=== PATIENT | male | born 1945 | race Caucasian/White ===

== ENCOUNTER → 2016-09-27 | Outpatient (CLI) | payer OTHER ==
--- NOTE | 2016-09-28 08:56 | MRI ---
Study: MRI of the right wrist. MRI of the right hand. Indication: HAND PAIN; WRIST PAIN Technique: Multiplanar, multi sequence MRI of the right wrist and MRI of the right hand were obtained without intravenous contrast. Comparison: None. 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 Tiny joint effusion. Millimetric scattered ganglion noted about the joint space. Less pronounced mild to moderate STT joint osteoarthritis. No acute fracture or osseous contusion. Mild osteoarthritis scapholunate joint with mild subchondral cystic change of the radial margin of the lunate. Degenerative signal and attenuation scapholunate ligament without fluid-filled tear defect. Lunotriquetral ligament intact. Subchondral marrow change also noted of the lunate at its articulation with the hamate indicating mild to moderate osteoarthritis. Type 2 lunate with mild subchondral marrow change of the adjacent proximal pole of the hamate. Mild distal radioulnar joint osteoarthritis with a small joint effusion. Degenerative tearing and thinning of the central substance of the TFC noted. No appreciable tear of the extensor or flexor tendons. Flexor retinaculum, median nerve, ulnar nerve are unremarkable. Slight dorsal subluxation distal ulna in relation sigmoid notch. Scattered osteoarthritic changes noted throughout the MCP joints and IP joints with changes most pronounced at the 3rd MCP joint where there is moderate to severe osteoarthritis. Fairly extensive areas of grade 4 chondral loss noted throughout this joint space with cortical remodeling and small to moderate joint line osteophytes. There is patchy marrow edema within the base of the 3rd proximal phalanx as well as the head neck of the 3rd metacarpal. Associated joint effusion noted with ganglionic like distension along the proximal/ volar margin. Impression: Scattered osteoarthritic changes throughout the right wrist and hand with changes most pronounced at the 1st CMC joint where there are severe changes and at the 3rd MCP joint where there are moderate to severe changes as detailed above. Degenerative thinning central substance scapholunate ligament without full-thickness tear defect or widening of the interval. Thinning and degenerative tearing TFC. Additional findings as above. Electronically signed by: Rodolfo Dean MD 09/28/2016 08:55
== END | disposition home or self-care (01) ==
LOC: MRI 09:36
PROVIDERS: ATTEND Family Medicine
DX: M19.031 Primary osteoarthritis, right wrist (principal)

== ENCOUNTER → 2016-10-19 | Outpatient (CLI) | payer OTHER ==
--- NOTE | 2016-10-19 11:40 | MRI ---
Study: MRI of the Right Elbow. Indication: PAIN IN ELBOW Technique: Multiplanar, multi sequence MRI of the right elbow was obtained without intravenous contrast. Comparison: Nine. Findings: External skin marker placed along the posterior/radial margin of the elbow. No discrete mass lesion at this site. There is adjacent common extensor tendinosis with an irregular low to intermediate grade interstitial fissuring throughout. No full-thickness transection. Prior partial thickness tear humeral attachment radial collateral ligament suspected as well. Prior sprain ulnar collateral ligament. Common flexor tendon origin intact. Biceps, brachialis, and triceps tendon insertions are intact. No acute fracture or osseous contusion. Ulnar nerve intact. Irregular grade 4 chondral loss and subchondral cystic change dorsal margin coronoid process with an adjacent 14 mm ossified loose body along its dorsal margin. There are scattered areas of grade 2/3 chondral thinning of the remainder of the elbow compartments with small marginal osteophytes. Tiny elbow effusion. Impression: Common extensor tendinosis with low to intermediate grade interstitial fissuring. Prior partial thickness tear humeral attachment radial collateral ligament. 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 Prior sprain ulnar collateral ligament. Electronically signed by: Rodolfo Dean MD 10/19/2016 11:39 AM [employer] [facility]
== END | disposition home or self-care (01) ==
LOC: MRI 08:02
PROVIDERS: ATTEND Family Medicine
DX: M19.021 Primary osteoarthritis, right elbow (principal)